=== PATIENT | male | born 1955 | race Hispanic/Latino ===

== ENCOUNTER 2018-11-09 08:46 | Outpatient (CLI) | payer BC ==
--- NOTE | 2018-11-09 10:57 | CT ---
CT ABDOMEN WITH CONTRAST CT PELVIS WITH CONTRAST: HISTORY: Patient has completed radiation treatments. Left hip pain. Diagnosis of prostate cancer one year ag o. COMPARISON: None. FINDINGS: ABDOMEN CT: Lung bases clear. Heart size is normal. No pericardial effusion. The descending thoracic aorta and abdominal aorta have a normal caliber. No periaortic fat stranding. Intra- and extrahepatic portal vein is patent. CT evidence of cholelithiasis without evidence of cho lecystitis. There appears to be a fistulous connection between the portal venous system and the hepatic vein, and the right hepatic lobe. Findings may be congenital or iatrogenic. No enhancing masses in the liver . Punctate hypodensities throughout the liver are too small to characterize. Spleen, pancreas, and adrenal glands are unremarkable. Symmetric enhancement of the kidneys. Bilaterally, no obstructive uropathy. No gastrohepatic, retrocrural, or periportal lymphadenopathy. No mesenteric mass, lymphadenopathy, free air, or free fluid. Ventral abdominal hernia contains mesenteric fat. No bowel herniation. Gastric mucosa, duodenum, and multiple normal-caliber small bowel loops. Ileocecal junction is stephenie l. Normal-caliber appendix. Scattered fecal material in a nondistended, nondilated colon. Occasion al diverticulum. No diverticulitis. CT PELVIS: Nonspecific straightening of the presacral fat. A small amount of fluid in the left hemipelvis. No pelvic mass, lymphadenopathy, or free air. There is circumferential mucosal thickening of the urinar y bladder, nonspecific. Correlate for underlying pathology. Normal-appearing prostate gland is not appreciated and findings appear to be due to postsurgical change. There are multiple colonic foci involving the distal thoracic and lumbar spine. Additionally, there is sclerosis involving the left and right aspect of the iliac wing, left aspect of the S1 vertebral b eve and left intertrochanteric region, left superior pubic ramus metastases. No evidence of an associated pathologic fracture. IMPRESSION: 1. Multifocal osseous metastases. No evidence of associated pathologic fracture. POS: NADIA
--- NOTE | 2018-11-09 14:20 | NM ---
BONE SCAN: Date: 11/09/18 HISTORY: Malignant neoplasm of prostate, rising PSA levels, right shoulder and left hip pain for 1 month. FINDINGS: Patient injected with 33 mCi technetium-99m MDP intravenous. Whole body images of the bony skeleton r eveals several areas of extensive intense abnormal activity in the region of the right shoulder, prob ably the scapula and humeral neck region. In addition, there are multiple focal areas of abnormally i ncreased activity involving the thoracic and lumbar spine, and a left posterior rib, probably a 10th rib. There is a large area of abnormal increased activity involving the left ilium and left sacral al a region, as well as the right sacral ala region, and small foci within the left pelvis. These findin gs are consistent with extensive metastasis and correspond to abnormal sclerotic bone lesions on the prior CT scan. IMPRESSION: Numerous areas of bone metastasis as above. These correspond to areas of abnormal blastic bone findin gs on the CT scan done earlier today. A report from a prior bone scan dated 03/23/18 is made available for comparison. There is no imaging available for comparison. Based on the report, I would feel that the fairly extensive areas of abnorm al activity noted now in the region of the left shoulder, axial skeleton, and pelvis would be definit ben worse, as well as the description of tiny sclerotic lesions seen within the skeleton on the same day which are presumed to be worse as well, and I feel that these findings represent active bone meta stasis. POS: NADIA
[2018-11-09] MEDS ORDERED: Iopamidol 370 76% 100 ML VIAL ONE (16:59)
== END 2018-11-09 08:47 | disposition home or self-care (01) ==
LOC: CT 08:46
PROVIDERS: ATTEND Internal Medicine Hematology & Oncology
DX: C61 Malignant neoplasm of prostate (principal); C79.51 Secondary malignant neoplasm of bone
CPT/HCPCS: 74177; 78306; 82565; A9503; Q9967

== ENCOUNTER 2019-01-15 07:03 | Outpatient (CLI) | payer BC ==
--- NOTE | 2019-01-15 09:02 | MRI ---
Exam: Thoracic spine MRI with and without contrast History metastatic prostate cancer. Sent back pain, upper lumbar spine. Pain radiates to the shoulders. COMPARISON: None Correlation: Nuclear medicine bone scan to 419 FINDINGS: Abnormal T1 marrow signal intensity with associated T2, STIR hyperintensity as well as enhancement in volving the T8, T10 and T11 levels. Abnormal signal intensity extends into the left posterior elements at T8, T9. No significant loss of vertebral body height or retropulsion. Visualized mediastinal structures, lung parenchyma have normal signal intensity. There is a scar/atel ectasis in both lower lobes. Trace bilateral effusions No retroperitoneal mass, lymphadenopathy or hematoma Conus medullaris terminates at the inferior aspect of T12. The thoracic cord has normal size and sign al intensity. No cord expansion, cord malacia or abnormal enhancement. Throughout the thoracic spine, there is no significant central canal stenosis. Mild mass effect upon the left aspect of the central spinal canal and left hemicord at T9-T10 Throughout the thoracic spine, neural foramina are patent. IMPRESSION: 1. Osseous metastases involving the thoracic spine at T8, T10 and T11. There is no evidence of associ ated pathologic fracture 2. No abnormal signal intensity in the thoracic cord.
--- NOTE | 2019-01-15 09:12 | MRI ---
MRI LUMBAR SPINE WITH AND WITHOUT CONTRAST: DATE: 01/15/2019. HISTORY: A 63-year-old male with prostate cancer and bone metastasis, C61 and C79.51. Generalized low back pa in. COMPARISON: None. TECHNIQUE: Multiple sequences obtained in axial and sagittal planes, pre and post IV injection of gadolinium-bas ed contrast agent: 20 mL MultiHance. FINDINGS: There are 5 lumbar-type vertebrae. Vertebral body heights are maintained. Alignment is normal. The re is no high-grade central spinal canal stenosis at any level. There are multiple enhancing metasta tic intraosseous lesions at several levels in the lumbar spine. The largest involves the majority of the volume of L4 vertebral body. The 2nd largest in the lumbar spine is at the right side of the L1 vertebral body. T11 is significantly involved, but is incompletely imaged. The T12, L2, and L5 lev els are much less involved. There is a large region of osseous metastatic involvement of the left S1 sacral ala, and all of the visualized portions of the left iliac bone including iliac wing, and post erior aspect of the right iliac bone. At L4, there is mild expansion of the right posterior aspect o f the metastatic bone lesion that mildly encroaches upon the right anterior aspect of the spinal elpidio l, with mild indentation and effacement of the fat in right lateral recess surrounding right L5 nerve root. The cauda equina is distributed in a symmetrical fashion throughout the thecal sac, with no e vidence of intradural abnormal enhancement. There is moderate bilateral neural foraminal stenosis at L3-4, L4-5, and L5-S1, due to developmentally slightly short pedicles and mild degenerative facet hy pertrophy. IMPRESSION: 1. Multilevel osseous metastatic disease. The greatest degrees of involvement are L4 vertebral body , left S1 sacral alae, and left iliac bone. 2. Mild encroachment upon the right anterior aspect of the spinal canal at L4, and causing mild-mode rate narrowing of the right lateral recess at L4-5. 3. No high-grade central spinal canal stenosis at any level. 4. No pathologic compression fracture identified. RENALDO Miguel POS: FLY
[2019-01-15] MEDS ORDERED: Gadobenate Dimeglumine 529 MG/1 ML (20ML VIAL) ONE (15:12)
== END 2019-01-15 07:04 | disposition home or self-care (01) ==
LOC: MRI 07:03
PROVIDERS: ATTEND Internal Medicine Hematology & Oncology
DX: C61 Malignant neoplasm of prostate (principal); M54.5 Low back pain; C79.51 Secondary malignant neoplasm of bone; M48.061 Spinal stenosis, lumbar region without neurogenic claudication
CPT/HCPCS: 72157; 72158

== ENCOUNTER 2019-04-19 14:22 | Outpatient (CLI) | payer BC ==
--- NOTE | 2019-04-19 15:57 | RAD ---
RIGHT RIBS: HISTORY: Pain. COMPARISON: Nuclear medicine bone scan from 11/09/2018. FINDINGS: There is abnormal sclerosis of the right humeral head, as well as the scapula. There is a fracture o f the right anterior 7th rib, which appears relatively acute. No pneumothorax. No significant effusion. IMPRESSION: Right anterior 7th rib fracture, relatively acute. POS: HOME
--- NOTE | 2019-04-19 16:01 | RAD ---
CHEST TWO VIEWS: HISTORY: Right-sided rib pain. COMPARISON: Rib radiographs from the same day. FINDINGS: There is a right anterior 7th rib fracture. There is some scarring within the lingula. No pneumothorax. No significant effusion. IMPRESSION: Right anterior 7th rib fracture, relatively acute. POS: HOME
== END 2019-04-19 14:23 | disposition home or self-care (01) ==
LOC: BICRAD 14:22
PROVIDERS: ATTEND Internal Medicine Hematology & Oncology
DX: C61 Malignant neoplasm of prostate (principal); C79.51 Secondary malignant neoplasm of bone; S22.31XA Fracture of one rib, right side, initial encounter for closed fracture
CPT/HCPCS: 36415; 71046; 80053; 82248; 83615; 84100; 84153; 84550

== ENCOUNTER 2019-04-29 08:58 | Day surgery (SDC) | payer BC ==
[2019-04-29] MEDS ORDERED: Acetaminophen 500 MG TAB PO SCH (09:15)
[2019-04-29] MEDS ORDERED: diphenhydrAMINE 25 MG CAP PO SCH (09:30)
[2019-04-29] MEDS ORDERED: Sodium Chloride 0.9% 20 ML ONE (10:19)
[2019-04-29 14:19] LABS: Hemoglobin 9.6 g/dL (14.0-18.0)
[2019-04-29 16:07] VITALS: TEMP 98.8
[2019-04-29 16:38] VITALS: BP 147/76
== END 2019-04-29 16:39 | disposition home or self-care (01) ==
LOC: ONC/OP 08:58
PROVIDERS: ATTEND Internal Medicine Hematology & Oncology
PROC: 30233N1 Transfusion of Nonautologous Red Blood Cells into Peripheral Vein, Percutaneous Approach (ICD-10-PCS; principal; 2019-04-29)
DX: D64.9 Anemia, unspecified (principal); D69.6 Thrombocytopenia, unspecified; Z88.5 Allergy status to narcotic agent
CPT/HCPCS: 36430; 85014; 85018; 86850; 86900; 86901; P9016; Q0163

== ENCOUNTER 2019-04-30 12:21 | Emergency (ER) | payer BC ==
[2019-04-30] MEDS ORDERED: Pantoprazole 40 MG VIAL ONE (13:03)
[2019-04-30] MEDS ORDERED: Ondansetron PF 4 MG/2 ML Vial ONE (13:03)
[2019-04-30 13:08] LABS: Hemoglobin 11.9 g/dL (14.0-18.0); Mean Corpuscular HGB CONC 34.1 g/dL (32.0-36.0); Mean Corpuscular Hemoglobin 31.4 pg (27.0-31.0); Mean Platelet Volume 8.1 fL (7.4-10.4); Platelet Count 144 thou/uL (130-400); RBC Distribution Width 15.8 % (11.5-14.5); White Blood Cell (WBC) Count 18.8 thou/uL (4.8-10.8)
[2019-04-30 13:28] LABS: Anisocytosis SLIGHT = 6-15 cells (100X) (0-5/hpf); Band 6 % (5-11); Lymphocytes 3 % (21-51); MDiff Complete? YES; Monocytes 2 % (0-10); Neutrophil 88 % (42-75); Ovalocytes SLIGHT = 2-5 cells (100X) (0-1/hpf); Platelet Morphology Comment Appears Adequate; Polychromasia SLIGHT = 2-3 cells (100X) (0-2/hpf)
[2019-04-30 13:29] LABS: ALT (SGPT) Less than 7 U/L (8-55); AST (SGOT) 14 U/L (5-34); Albumin 3.7 g/dL (3.4-4.8); Alkaline Phosphatase 153 U/L (40-150); Anion Gap 12 mmol/L (10-20); BUN (Urea Nitrogen) 7 mg/dL (8.4-25.7); Bilirubin, Total 0.9 mg/dL (0.2-1.2); Calc. Creatinine Clearance 0 mL/min (70-130); Calcium 9.2 mg/dL (7.8-10.44); Carbon Dioxide 22 mmol/L (23-31); Chloride 108 mmol/L (98-107); Estimated GFR-MDRD Greater than 90; Globulin 2.6 g/dL (2.4-3.5); Glucose 116 mg/dL (80-115); Lipase 9 U/L (8-78); Potassium 3.2 mmol/L (3.5-5.1); Protein, Total 6.3 g/dL (5.8-8.1); Sodium 139 mmol/L (136-145)
== END 2019-04-30 14:25 | disposition home or self-care (01) ==
LOC: ERS 12:21
DX: R11.2 Nausea with vomiting, unspecified (principal); R19.7 Diarrhea, unspecified; E78.5 Hyperlipidemia, unspecified
CPT/HCPCS: 36415; 80053; 83690; 85025; 96361; 96374; 96375; C9113; J2405